=== PATIENT | female | born 1950 | race African-American/Black ===

== ENCOUNTER 2020-05-04 15:47 | Inpatient (IN) ==
[2020-05-04] MEDS ORDERED: METOPROLOL TARTRATE 5 MG/5 ML VIAL IV ONE (15:58)
[2020-05-04] MEDS ORDERED: fentaNYL 100 MCG/2 ML VIAL ONE (16:01)
[2020-05-04] MEDS ORDERED: MIDAZOLAM 2 MG/2 ML VIAL ONE (16:01)
[2020-05-04] MEDS ORDERED: NOREPINEPHRINE 4 MG/4 ML VIAL IV ONE (16:05)
[2020-05-04] MEDS ORDERED: HEPARIN 5,000 UNIT/1 ML VIAL ONE (16:09)
[2020-05-04] MEDS ORDERED: HEPARIN/NACL 0.9% 2 UNITS/ML 500 ML IV ONE (16:15)
[2020-05-04] MEDS ORDERED: TIROFIBAN 5,000 MCG/100 ML PREMIX IV ONE (16:16)
[2020-05-04] MEDS ORDERED: TIROFIBAN 5,000 MCG/100 ML PREMIX IV SCH (16:24)
[2020-05-04] MEDS ORDERED: AMIODARONE 450 MG/9 ML VIAL IV ONE (16:38)
[2020-05-04] MEDS ORDERED: AMIODARONE INJ 450 MG in DEXTROSE 5% 241 ML IV SCH ×2 (16:40→22:40)
[2020-05-04] MEDS ORDERED: TICAGRELOR 90 MG TABLET ONE (16:45)
[2020-05-04] MEDS ORDERED: HEPARIN/NACL 0.9% 2 UNITS/ML 1,000 ML IV ONE (16:47)
[2020-05-04] MEDS ORDERED: LIDOCAINE 1%/EPI INJ 20 ML VIAL ONE (16:47)
[2020-05-04] MEDS ORDERED: HYDROmorphone 2 MG/1 ML VIAL IV PRN (16:52)
[2020-05-04] MEDS ORDERED: ZALEPLON 5 MG CAPSULE PO PRN (16:52)
[2020-05-04] MEDS ORDERED: ONDANSETRON 4 MG/2 ML VIAL IV PRN (16:52)
[2020-05-04] MEDS ORDERED: SODIUM CHLORIDE 0.9% 1,000 ML IV SCH (17:00)
[2020-05-04 18:42] LABS: Basophils % 0.1 % (0.0-0.8); Hematocrit 42.7 VOL% (35.7-47.0); Hemoglobin 13.4 GM/DL (12.0-16.0); Immature Granulocytes % 0.4 %; Immature Granulocytes Absolute 0.03 #; Lymphocytes # 0.9 10*3/uL (1.4-4.0); Mean Corpuscular HGB Conc 31.4 GM/DL (32-36); Mean Corpuscular Volume 87.5 FL (87-102); Mean Platelet Volume 10.8 FL (9.6-12.0); Monocytes % 9.5 % (1.7-12.7); Platelet Count 223 T/CUMM (130-400); Red Blood Count 4.88 MC/CUMM (3.8-5.5); Red Cell Distribution Width 13.2 % (9.3-17.3); White Blood Count 6.9 T/CUMM (4-12)
[2020-05-04 18:49] LABS: Albumin 3.2 G/DL (3.4-5.0); Bilirubin,Total 0.4 MG/DL (0.2-1.0); CKMB % 13.8 %; Calcium 8.6 MG/DL (8.5-10.1)
[2020-05-04 18:52] LABS: Troponin I 10.1 NG/ML (0.00-0.045)
[2020-05-04 19:09] LABS: Bilirubin,Urine Negative (Negative); Blood, Urine Moderate mg/dL (Negative); Glucose,Urine (UA) Negative (Negative); Ketones,Urine Negative (Negative); Mucus,Urine Few /LPF (Occasional); Nitrite,Urine Negative (Negative); Protein,Urine 100 MG/DL; RBC,Urine 43 /HPF (0-4); Squamous Epithelial Cell,Urine Occasional /HPF (0-10); Urine Appearance CLEAR (Clear); Urine Color Yellow (Yellow); Urine Urobilinogen < 2.0 EU/DL (0.2-1.0); WBC,Urine 1 /HPF (0-6)
[2020-05-04 19:25] LABS: Urine Specific Gravity > 1.035 (1.001-1.035)
[2020-05-04 20:22] LABS: Platelet Estimate Adequate
[2020-05-04] MEDS: carvediloL 6.25 MG TABLET PO SCH (20:27)
[2020-05-04] MEDS: ATORVASTATIN 80 MG TABLET PO SCH (20:27)
[2020-05-04] MEDS: TICAGRELOR 90 MG TABLET PO SCH (20:27)
[2020-05-05 01:07] LABS: Calcium 8.4 MG/DL (8.5-10.1); Osmolality,Calculated 278.5 MOS/KG (273-304); Potassium 3.9 MMOL/L (3.5-5.1)
[2020-05-05 01:25] LABS: CKMB % 13.7 %
[2020-05-05 01:31] LABS: Troponin I 40.4 NG/ML (0.00-0.045)
[2020-05-05] MEDS ORDERED: AMIODARONE 200 MG TABLET PO SCH (09:00)
[2020-05-05] MEDS ORDERED: ASPIRIN EC 81 MG TABLET PO SCH (09:00)
[2020-05-05] MEDS: carvediloL 6.25 MG TABLET PO SCH (09:27)
[2020-05-05] MEDS: APIXABAN 5 MG TABLET PO SCH ×2 (09:33→20:59)
[2020-05-05] MEDS: TICAGRELOR 90 MG TABLET PO SCH ×2 (09:33→20:59)
[2020-05-05] MEDS: PANTOPRAZOLE 40 MG TABLET PO SCH (09:33)
[2020-05-05 09:54] LABS: CKMB % 10.6 %
[2020-05-05 09:56] LABS: Troponin I 25.6 NG/ML (0.00-0.045)
[2020-05-05] MEDS: ATORVASTATIN 80 MG TABLET PO SCH (20:59)
[2020-05-06 06:19] LABS: Basophils % 0.4 % (0.0-0.8); Hematocrit 33.9 VOL% (35.7-47.0); Hemoglobin 10.5 GM/DL (12.0-16.0); Immature Granulocytes % 0.4 %; Immature Granulocytes Absolute 0.02 #; Lymphocytes # 1.5 10*3/uL (1.4-4.0); Lymphocytes % 25.9 % (21.3-54.2); Mean Platelet Volume 10.5 FL (9.6-12.0); Monocytes % 11.7 % (1.7-12.7); Neutrophils % 61.6 % (38.7-73.9); Platelet Count 227 T/CUMM (130-400); Red Blood Count 3.81 MC/CUMM (3.8-5.5); Red Cell Distribution Width 13.2 % (9.3-17.3); White Blood Count 5.6 T/CUMM (4-12)
[2020-05-06 06:45] LABS: Calcium 8.5 MG/DL (8.5-10.1); Osmolality,Calculated 278.4 MOS/KG (273-304); Potassium 3.7 MMOL/L (3.5-5.1)
[2020-05-06 06:46] LABS: CKMB % 3.9 %
[2020-05-06 06:47] LABS: Troponin I 14.1 NG/ML (0.00-0.045)
[2020-05-06 06:48] LABS: Risk Ratio 3.39; VLDL CHOLESTEROL 23.6 MG/DL
[2020-05-06] MEDS: PANTOPRAZOLE 40 MG TABLET PO SCH (09:30)
[2020-05-06] MEDS: TICAGRELOR 90 MG TABLET PO SCH ×2 (09:30→20:34)
[2020-05-06] MEDS: APIXABAN 5 MG TABLET PO SCH ×2 (09:30→20:34)
[2020-05-06] MEDS: carvediloL 3.125 MG TABLET PO SCH ×2 (09:30→17:03)
[2020-05-06] MEDS: ATORVASTATIN 80 MG TABLET PO SCH (20:34)
[2020-05-07 06:09] LABS: Basophils % 0.4 % (0.0-0.8); Hematocrit 32.5 VOL% (35.7-47.0); Hemoglobin 10.5 GM/DL (12.0-16.0); Immature Granulocytes % 0.4 %; Immature Granulocytes Absolute 0.02 #; Lymphocytes # 1.7 10*3/uL (1.4-4.0); Mean Corpuscular HGB Conc 32.3 GM/DL (32-36); Mean Corpuscular Volume 87.1 FL (87-102); Mean Platelet Volume 10.5 FL (9.6-12.0); Monocytes % 12.6 % (1.7-12.7); Neutrophils % 54.6 % (38.7-73.9); Platelet Count 227 T/CUMM (130-400); Red Blood Count 3.73 MC/CUMM (3.8-5.5); Red Cell Distribution Width 13.3 % (9.3-17.3); White Blood Count 5.3 T/CUMM (4-12)
[2020-05-07 06:30] LABS: Calcium 8.6 MG/DL (8.5-10.1); Osmolality,Calculated 280.3 MOS/KG (273-304); Potassium 3.5 MMOL/L (3.5-5.1)
[2020-05-07 08:08] VITALS: BP 138/82
[2020-05-07] MEDS: carvediloL 3.125 MG TABLET PO SCH (09:40)
[2020-05-07] MEDS: APIXABAN 5 MG TABLET PO SCH (09:40)
[2020-05-07] MEDS: TICAGRELOR 90 MG TABLET PO SCH (09:41)
[2020-05-07] MEDS: PANTOPRAZOLE 40 MG TABLET PO SCH (09:41)
== END 2020-05-07 12:45 | disposition home or self-care (01) | DRG 247 ==
LOC: N.CL 15:47 → N.CC 16:34 → N.TELES 05-05 13:06
PROVIDERS: ADMIT Internal Medicine Interventional Cardiology; ATTEND Internal Medicine Interventional Cardiology
PROC: CLCCHCL (ICD-10-PCS; 2020-05-04 14:45)